=== PATIENT | female | born 1990 ===

== ENCOUNTER 2021-03-22 14:21 | Outpatient (CLI) | payer OTHER | END 2021-03-24 17:20 | disposition home or self-care (01) | LOC: OBS/DEL 14:21 | PROVIDERS: ATTEND Obstetrics & Gynecology | DX: O26.892 Other specified pregnancy related conditions, second trimester (principal); R10.2 Pelvic and perineal pain; Z3A.22 22 weeks gestation of pregnancy ==

== ENCOUNTER 2021-04-25 19:50 | Outpatient (CLI) | payer OTHER ==
[2021-04-25] MEDS ORDERED: PEPCID AC10 MG (20:52)
[2021-04-25] MEDS ORDERED: ZOFRAN8 MG (20:52)
[2021-04-25] MEDS ORDERED: PRENATAL + DHA1 EAC1 (20:52)
[2021-04-25] MEDS ORDERED: FOLIC ACID20 MG (20:52)
== END 2021-04-26 05:23 | disposition home or self-care (01) ==
LOC: OBS/DEL 19:50 → PRENATAL 05-18 11:00
PROVIDERS: ATTEND Obstetrics & Gynecology
DX: O23.42 Unspecified infection of urinary tract in pregnancy, second trimester (principal); Z3A.27 27 weeks gestation of pregnancy

== ENCOUNTER 2021-05-13 16:41 | Outpatient (CLI) | payer OTHER ==
[~2021-05-13 16:41] MED LIST: FOLIC ACID20 MG; PEPCID AC10 MG; PRENATAL + DHA1 EAC1; ZOFRAN8 MG
== END 2021-05-14 10:35 | disposition home or self-care (01) ==
LOC: OBS/DEL 16:41
PROVIDERS: ATTEND Obstetrics & Gynecology
DX: O26.893 Other specified pregnancy related conditions, third trimester (principal); K52.89 Other specified noninfective gastroenteritis and colitis; R10.2 Pelvic and perineal pain; Z3A.30 30 weeks gestation of pregnancy

== ENCOUNTER 2021-05-18 11:04 | Outpatient (CLI) | payer OTHER | END 2021-05-18 12:30 | disposition home or self-care (01) | LOC: PRENATAL 11:04 | PROVIDERS: ATTEND Obstetrics & Gynecology Maternal & Fetal Medicine | DX: O35.0XX1 Maternal care for (suspected) central nervous system malformation in fetus, fetus 1 (principal); O35.3XX1 Maternal care for (suspected) damage to fetus from viral disease in mother, fetus 1; O98.513 Other viral diseases complicating pregnancy, third trimester; Z36.89 Encounter for other specified antenatal screening; Z3A.30 30 weeks gestation of pregnancy ==

== ENCOUNTER 2021-07-07 13:24 | Inpatient (IN) | payer OTHER ==
[~2021-07-07] VITALS: Ht 152.4 cm; Wt 63.5 kg
== END 2021-07-09 15:43 | disposition home or self-care (01) | DRG 807 ==
LOC: LDR 13:24 → OB/GYN 16:32
PROVIDERS: ADMIT Obstetrics & Gynecology; ATTEND Obstetrics & Gynecology
PROC: 10E0XZZ Delivery of Products of Conception, External Approach (ICD-10-PCS; principal; 2021-07-07)
PROC: 0UQGXZZ Repair Vagina, External Approach (ICD-10-PCS; 2021-07-07)
PROC: 4A1HXFZ Monitoring of Products of Conception, Cardiac Rhythm, External Approach (ICD-10-PCS; 2021-07-07)
DX: O99.824 Streptococcus B carrier state complicating childbirth (principal); O71.4 Obstetric high vaginal laceration alone; Z37.0 Single live birth; Z3A.38 38 weeks gestation of pregnancy